=== PATIENT | female | born 1955 | race African-American/Black ===

== ENCOUNTER 2017-01-01 09:09 | Day surgery (SDC) | payer OTHER, MEDICAID ==
[~2017-01-01] VITALS: Ht 165.1 cm; Wt 98.4 kg
[~2017-01-01 09:09] MED LIST: ASPI-986 PO; DEXL60CA3 PO; FURO-152 PO; HYDR-523 PO; LISI-604 PO; TIZA4TAB4 PO
[2017-01-01] MEDS ORDERED: ASPI-1159 PO (10:49)
[2017-01-01] MEDS ORDERED: AMLO5TAB4 PO (10:49)
[2017-01-01] MEDS ORDERED: ACET1TAB12 PO (10:49)
[2017-01-01] MEDS ORDERED: NICARDIPINE 100MCG/ML 10ML VIAL (CATH LAB) IV ONE (12:25)
[2017-01-01] MEDS ORDERED: NITROGLYCERIN 50MCG/ML 10ML VIAL (CATH LAB) IV ONE (12:25)
[2017-01-01] MEDS ORDERED: IODIXANOL 320MG/ML 100 ML BOTTLE IV ONE ×2 (13:04→14:07)
[2017-01-01] MEDS ORDERED: FENTANYL CITRATE/PF 50MCG/ML 2ML VIAL ONE (13:04)
[2017-01-01] MEDS ORDERED: LIDOCAINE HCL 1% 20ML VIAL (Pyxis) INJ ONE (13:04)
[2017-01-01] MEDS ORDERED: MIDAZOLAM HCL 2 MG/2 ML VIAL ONE (13:04)
[2017-01-01] MEDS ORDERED: HEPARIN SODIUM 1,000 UNIT/1ML VIAL IV ONE (13:22)
[2017-01-01] MEDS ORDERED: ATROPINE SULFATE 1MG/10ML SYR IV PRN (15:00)
[2017-01-01] MEDS ORDERED: ACETAMINOPHEN 325MG TABLET PO PRN (15:00)
[2017-01-01] MEDS ORDERED: SODIUM CHLORIDE 0.45% 1,000 ML IV ONE (15:00)
[2017-01-01] MEDS ORDERED: ONDANSETRON HCL 4MG/2ML VIAL IV PRN (15:00)
[2017-01-01] MEDS ORDERED: MORPHINE SULFATE 2 MG/ML CPJ (NOT FOR IM USE) IV PRN (15:00)
[2017-01-01] MEDS ORDERED: HYDROCODONE/ACETAMINOPHEN 5/325MG TABLET PO NR (15:30)
[2017-01-01 16:48] VITALS: BP 135/75
== END 2017-01-01 18:30 | disposition home or self-care (01) ==
LOC: CCL 09:09
PROVIDERS: ATTEND Specialist
DX: I35.1 Nonrheumatic aortic (valve) insufficiency (principal); K21.9 Gastro-esophageal reflux disease without esophagitis; M54.5 Low back pain; G89.29 Other chronic pain; I11.9 Hypertensive heart disease without heart failure; Z98.890 Other specified postprocedural states; Z79.899 Other long term (current) drug therapy; Z91.012 Allergy to eggs
CPT/HCPCS: 93451; 93454; 93567; 99152; 99153; C1760; C1769; C1887; C1893; J1644; J2250; J3010; J3490; Q9967

== ENCOUNTER → 2020-04-04 | Outpatient (CLI) | payer OTHER, MEDICAID ==
[~2020-04-04] MED LIST changes: +ACET1TAB12 PO; +AMLO5TAB4 PO; +ASPI-1497 PO; -TIZA4TAB4 PO; +TIZA4TAB5 PO
== END | disposition home or self-care (01) ==
LOC: LAB 11:21
PROVIDERS: ATTEND Internal Medicine Pulmonary Disease
DX: Z20.828 Contact with and (suspected) exposure to other viral communicable diseases (principal)
CPT/HCPCS: C9803; U0003

== ENCOUNTER → 2020-04-07 | Outpatient (CLI) | payer OTHER, MEDICAID ==
[~2020-04-07] MED LIST changes: +ALBUTEROL (0.083%) 2.5MG/3ML NEB ONE
== END | disposition home or self-care (01) ==
LOC: PF 13:05
PROVIDERS: ATTEND Internal Medicine Pulmonary Disease
DX: J45.909 Unspecified asthma, uncomplicated (principal); Z79.899 Other long term (current) drug therapy
CPT/HCPCS: 94060; 94727; 94729

== ENCOUNTER 2021-02-01 12:58 | Emergency (ER) | payer OTHER, MEDICAID ==
[~2021-02-01] VITALS: Ht 165.1 cm; Wt 100.0 kg
[~2021-02-01 12:58] MED LIST changes: -ALBUTEROL (0.083%) 2.5MG/3ML NEB ONE; -LISI-604 PO; +LISI20TA31 PO
[2021-02-01] MEDS ORDERED: ONDANSETRON 4MG ODT PO ONE (13:45)
[2021-02-01] MEDS: HYDROCODONE/ACETAMINOPHEN 10/325MG TABLET PO ONE ×2 (14:25→16:30)
[2021-02-01] MEDS ORDERED: HYDR-4009 MT (15:57)
[2021-02-01] MEDS ORDERED: HYDROCODONE/ACETAMINOPHEN 10/325MG TABLET PO ONE (16:00)
[2021-02-01 16:31] VITALS: BP 137/84
== END 2021-02-01 17:06 | disposition home or self-care (01) ==
LOC: ER 12:58
DX: S92.355A Nondisplaced fracture of fifth metatarsal bone, left foot, initial encounter for closed fracture (principal); S93.492A Sprain of other ligament of left ankle, initial encounter; X58.XXXA Exposure to other specified factors, initial encounter; Y93.89 Activity, other specified; Y92.89 Other specified places as the place of occurrence of the external cause; J45.909 Unspecified asthma, uncomplicated
CPT/HCPCS: 29515; 73610; 73630; 99284; Q0162

== ENCOUNTER 2024-06-17 11:58 | Inpatient (IN) | payer MEDICARE, OTHER ==
[~2024-06-17] VITALS: Ht 165.1 cm; Wt 107.1 kg
[~2024-06-17 11:58] MED LIST changes: -AMLO5TAB4 PO; +AMLO5TAB5 PO; +ATOR20TA PO; +HYDR-4009 MT; +METH4TAB95 MT; +TIZA-204 PO; -TIZA4TAB5 PO
[2024-06-17 12:29] LABS: BASOPHILS % 0.8 % (0.0-2.0); EOSINOPHILS % 1.2 % (0.0-5.0); HEMATOCRIT. 32.6 % (36.0-48.0); HEMOGLOBIN. 10.2 g/dL (12.0-16.0); LYMPHOCYTES % 35.2 % (20.0-50.0); MEAN CORPUSCULAR HEMOGLOBIN 30.1 pg (28.0-32.0); MEAN CORPUSCULAR HGB CONC 31.1 g/dL (31.0-37.0); MEAN CORPUSCULAR VOLUME 96.5 fL (81.0-99.0); MEAN PLATELET VOLUME 8.3 fl (7.4-10.4); MONOCYTES % 13.2 % (2.0-8.0); NEUTROPHILS % 49.6 % (40.0-76.0); PLATELET 117 x1000/uL (130-400); RED BLOOD CELL COUNT 3.38 mill/uL (4.2-5.4); RED CELL DISTRIBUTION WIDTH 15.8 % (11.6-14.6); WHITE BLOOD COUNT 3.7 x1000/uL (4.5-11.0)
[2024-06-17 12:43] LABS: CHLORIDE 108 mEq/L (98-107); POTASSIUM 4.2 mEq/L (3.5-5.1); SODIUM 142 mEq/L (136-145)
[2024-06-17 12:44] LABS: CALCIUM 9.3 mg/dL (8.7-10.4); CARBON DIOXIDE 26 mEq/L (21-32)
[2024-06-17 12:49] LABS: GLUCOSE 95 mg/dL (70-105); UREA NITROGEN BLOOD 13 mg/dL (9-23)
[2024-06-17 12:50] LABS: TROPONIN I HIGH SENSITIVITY 26 ng/L (3.0-34)
[2024-06-17 14:48] LABS: TROPONIN I HIGH SENSITIVITY 27 ng/L (3.0-34)
[2024-06-17] MEDS ORDERED: ASPIRIN 325MG EC TABLET PO ONE (16:45)
[2024-06-17] MEDS: FUROSEMIDE 40MG/4ML VIAL IVP ONE (16:45)
[2024-06-17 18:15] VITALS: BP 140/85; PULSE 72; RESP 22; TEMP 36.4736
[2024-06-17 20:00] VITALS: BP 151/74; PULSE 77; RESP 19; TEMP 36.3918; O2SAT 93
[2024-06-17] MEDS ORDERED: HYDROCODONE/ACETAMINOPHEN 5/325MG TABLET PO PRN (20:00)
[2024-06-17] MEDS ORDERED: MECLIZINE 12.5MG TABLET PO PRN (20:00)
[2024-06-17] MEDS ORDERED: NALOXONE HCL 0.4MG/ML VIAL IV PRN (20:15)
[2024-06-17] MEDS: ATORVASTATIN CALCIUM 20MG TABLET PO SCH (21:00)
[2024-06-17 21:15] VITALS: PULSE 72; RESP 22; O2SAT 96
[2024-06-17] MEDS: IPRATROPIUM/ALBUTEROL 0.5-3(2.5)MG/3ML NEB HHN PRN (21:19)
[2024-06-17] MEDS ORDERED: TIZANIDINE HCL 2MG TABLET PO PRN (23:00)
[2024-06-18] VITALS: BP 144/56; PULSE 72; RESP 19; TEMP 36.6696; O2SAT 97
[2024-06-18 00:42] LABS: CREATINE KINASE MB FRACTION 0.5 ng/mL (0.5-3.6)
[2024-06-18 04:00] VITALS: BP 144/66; PULSE 65; RESP 19; TEMP 36.50292; O2SAT 96
[2024-06-18 08:13] VITALS: BP 130/69; PULSE 67; RESP 19; TEMP 36.16956; O2SAT 97
[2024-06-18 08:41] LABS: CREATINE KINASE MB FRACTION 0.5 ng/mL (0.5-3.6)
[2024-06-18] MEDS: ASPIRIN 81MG TABLET PO SCH (08:55)
[2024-06-18] MEDS: FUROSEMIDE 40MG TABLET PO SCH (08:55)
[2024-06-18] MEDS: LOSARTAN 25 MG TABLET PO SCH (08:55)
[2024-06-18] MEDS: ENOXAPARIN 40MG/0.4ML SYR SUBCUT SCH (09:00)
[2024-06-18 12:18] VITALS: BP 145/60; PULSE 77; RESP 18; TEMP 36.3918; O2SAT 97
[2024-06-18 15:48] VITALS: BP 125/76; PULSE 63; RESP 18; TEMP 36.16956; O2SAT 99
[2024-06-18 20:00] VITALS: BP 129/71; PULSE 68; RESP 20; TEMP 36.3918; O2SAT 96
[2024-06-19] VITALS: BP 146/65; PULSE 82; RESP 20; TEMP 36.28068; O2SAT 95
[2024-06-19 04:00] VITALS: BP 138/47; PULSE 75; RESP 20; TEMP 36.50292; O2SAT 74
[2024-06-19] MEDS: SODIUM CHLORIDE 0.45% 1,000 ML IV SCH (07:48)
[2024-06-19 08:00] VITALS: BP 127/55; PULSE 79; RESP 18; TEMP 36.50292; O2SAT 99
[2024-06-19] MEDS ORDERED: IODIXANOL 320MG/ML 100 ML BOTTLE IV ONE (11:02)
[2024-06-19] MEDS ORDERED: LIDOCAINE HCL 1% 20ML VIAL ONE ×2 (11:02→13:40)
[2024-06-19] MEDS ORDERED: HEPARIN 1000 UNITS/ML 10ML ONE (11:02)
[2024-06-19] MEDS ORDERED: ASPIRIN/SOD BICARB/CITRIC ACID 324MG TAB EFF ONE (11:09)
[2024-06-19 11:53] LABS: MEAN CORPUSCULAR HGB CONC 32.3 g/dL (31.0-37.0); PLATELET 101 x1000/uL (130-400); RED BLOOD CELL COUNT 3.54 mill/uL (4.2-5.4); WHITE BLOOD COUNT 3.1 x1000/uL (4.5-11.0)
[2024-06-19] MEDS ORDERED: FENTANYL CITRATE/PF 50MCG/ML 2ML VIAL ONE (11:55)
[2024-06-19] MEDS ORDERED: MIDAZOLAM HCL 2 MG/2 ML VIAL ONE (11:56)
[2024-06-19 12:02] LABS: CHLORIDE 105 mEq/L (98-107); POTASSIUM 4.4 mEq/L (3.5-5.1); SODIUM 140 mEq/L (136-145)
[2024-06-19 12:03] LABS: CARBON DIOXIDE 28 mEq/L (21-32)
[2024-06-19 12:04] LABS: CALCIUM 9.5 mg/dL (8.7-10.4)
[2024-06-19 12:08] LABS: GLUCOSE 85 mg/dL (70-105)
[2024-06-19 12:09] LABS: UREA NITROGEN BLOOD 11 mg/dL (9-23)
[2024-06-19] MEDS ORDERED: ATROPINE SULFATE 1MG/10ML SYR IV PRN (14:00)
[2024-06-19] MEDS ORDERED: SODIUM CHLORIDE 0.45% 1,000 ML IV ONE (14:00)
[2024-06-19] MEDS ORDERED: ACETAMINOPHEN 325MG TABLET PO PRN (14:00)
[2024-06-19] MEDS ORDERED: MORPHINE SULFATE 2 MG/ML INJ (NOT FOR IM USE) IV PRN (14:00)
[2024-06-19] MEDS ORDERED: ONDANSETRON HCL 4MG/2ML INJ IV PRN (14:00)
[2024-06-19 16:00] VITALS: BP 149/77; PULSE 63; RESP 18; TEMP 36.28068; O2SAT 96
[2024-06-19] MEDS: ACETAMINOPHEN 325MG TABLET PO PRN (17:28)
[2024-06-19] MEDS: SODIUM CHLORIDE 0.45% 1000ML IV ONE (17:36)
[2024-06-19 20:00] VITALS: BP 111/64; PULSE 83; RESP 21; TEMP 36.78072; O2SAT 100
[2024-06-20] VITALS: BP 93/58; PULSE 69; RESP 16; TEMP 36.83628; O2SAT 96
[2024-06-20 04:00] VITALS: BP 111/63; PULSE 66; RESP 19; TEMP 36.55848; O2SAT 98
[2024-06-20 08:00] VITALS: BP 128/75; PULSE 66; RESP 14; TEMP 37.00296; O2SAT 94
[2024-06-20 12:23] VITALS: BP 99/52; PULSE 73; RESP 22; TEMP 36.114; O2SAT 95
[2024-06-20 13:14] LABS: BG CARBOXYHEMOGLOBIN 1.3 % (0.5-1.5); BG DEOXYHEMOGLOBIN 4.9 % (0.0-5.0); BG FRACTION INSPIRED OXYGEN 21; BG HCO3 ACT 26.1 mmol/L (21.0-28.0); BG METHEMOGLOBIN 0.1 % (0.5-1.5); BG OXYHEMOGLOBIN 93.7 % (94.0-98.0); BG PCO2 39.2 mmHg (32.0-45.0); BG PH 7.442 (7.350-7.450); BG PO2 76.4 mmHg (83.0-108.0); BG SAMPLE SITE RIGHT BRACHIAL; BG TOTAL HEMOGLOBIN 10.8 g/dL (12.0-16.0); BG VENT MODE ROOM AIR
[2024-06-20] MEDS: SILDENAFIL CITRATE 20MG TABLET PO SCH (14:00)
[2024-06-20 16:00] VITALS: BP 116/59; PULSE 83; RESP 22; TEMP 36.114; O2SAT 95
[2024-06-20 20:02] VITALS: BP 120/68; PULSE 74; RESP 15; TEMP 36.6696; O2SAT 95
[2024-06-20 22:42] LABS: HEMATOCRIT 34.2 % (36.0-48.0); HEMOGLOBIN 10.8 g/dL (12.0-16.0)
[2024-06-20 22:51] LABS: CHLORIDE 103 mEq/L (98-107); POTASSIUM 3.6 mEq/L (3.5-5.1); SODIUM 140 mEq/L (136-145)
[2024-06-20 22:52] LABS: CARBON DIOXIDE 29 mEq/L (21-32)
[2024-06-20 22:53] LABS: CALCIUM 9.2 mg/dL (8.7-10.4)
[2024-06-20 22:57] LABS: GLUCOSE 80 mg/dL (70-105); UREA NITROGEN BLOOD 13 mg/dL (9-23)
[2024-06-21 00:02] VITALS: BP 114/64; PULSE 72; RESP 16; TEMP 36.55848; O2SAT 96
[2024-06-21 04:02] VITALS: BP 101/64; PULSE 70; RESP 16; TEMP 36.55848; O2SAT 96
[2024-06-21 08:00] VITALS: BP 113/73; PULSE 66; RESP 19; TEMP 36.28068; O2SAT 96
[2024-06-21 12:20] VITALS: BP 99/81; PULSE 82; RESP 18; TEMP 36.83628; O2SAT 100
[2024-06-21] MEDS ORDERED: REV20 PO (14:05)
[2024-06-21 14:15] VITALS: BP 99/81; PULSE 82; TEMP 98.3; O2SAT 96
== END 2024-06-21 14:00 | disposition home or self-care (01) | DRG 286 ==
LOC: ER 12:09 → EDBEDREQ 13:10 → 7WST 17:52 → UNDODISIN 06-18 14:00 → 3WST 06-19 14:46
PROVIDERS: ADMIT Internal Medicine; ATTEND Internal Medicine
PROC: B2111ZZ Fluoroscopy of Multiple Coronary Arteries using Low Osmolar Contrast (ICD-10-PCS; principal; 2024-06-19)
DX: I25.10 Atherosclerotic heart disease of native coronary artery without angina pectoris (principal); J96.91 Respiratory failure, unspecified with hypoxia; J44.89 Other specified chronic obstructive pulmonary disease; I27.20 Pulmonary hypertension, unspecified; D64.9 Anemia, unspecified; E66.9 Obesity, unspecified; I11.0 Hypertensive heart disease with heart failure; I35.1 Nonrheumatic aortic (valve) insufficiency; I50.9 Heart failure, unspecified; R07.89 Other chest pain; G47.33 Obstructive sleep apnea (adult) (pediatric); Z95.0 Presence of cardiac pacemaker; Z68.39 Body mass index [BMI] 39.0-39.9, adult; Z79.82 Long term (current) use of aspirin; Z79.899 Other long term (current) drug therapy; Z95.2 Presence of prosthetic heart valve; Z88.8 Allergy status to other drugs, medicaments and biological substances
CPT/HCPCS: 36415; 36600; 71045; 80048; 82375; 82550; 82553; 82805; 83880; 84484; 85014; 85018; 85025; 85027; 85347; 93005; 93460; 94640; 99285; C1769; C1887; C1893; J1644; J1650; J2250; J3010; J3490; Q9967